=== PATIENT | female | born 1985 | race Caucasian/White ===

== ENCOUNTER 2025-07-23 09:52 | Outpatient (REF) | payer OTHER, SELFPAY ==
[2025-07-23 13:32] LABS: MANUAL DIFF FLAG NO
[2025-07-23 13:48] LABS: Hematocrit 41.0 % (37.0-47.0); Hemoglobin 13.8 g/dl (12.0-16.0); Imm Gran Abs Auto 0.01 X10*3/uL (0.00-0.03); Imm Gran Pct Auto 0.2 % (0.0-0.4); Lymphocytes Absolute Auto 1.9 X10*3/uL (1.2-4.9); Mean Corpuscular HGB Conc 33.7 g/dl (31.0-35.0); Mean Corpuscular Hemoglobin 30.5 pg (27.0-33.0); Mean Corpuscular Volume 90.5 fL (80.0-98.0); NRBC Abs Auto 0.000 X10*3/uL (0.0-0.012); NRBC Pct Auto 0.0 /100WBC (0.0-0.2); Platelet Count 258 X10*3/uL (160-400); Red Blood Count 4.53 X10*6/uL (4.20-5.50); White Blood Count 5.6 X10*3/uL (4.8-10.8)
[2025-07-23 13:59] LABS: Hemoglobin A1C 78.5575 umol/L
[2025-07-23 14:00] LABS: Alanine Aminotransferase 22 U/L (0-31); Albumin Level 4.7 g/dL (3.5-5.0); Alkaline Phosphatase 56 U/L (39-117); Anion Gap 10 (12-20); Aspartate Amino Transferase 29 U/L (5-31); Blood Urea Nitrogen 14 mg/dL (9-16); Calcium 9.4 mg/dL (8.4-10.2); Carbon Dioxide 25 mmol/L (22-29); Chloride 107 mmol/L (96-108); Cholesterol 191 mg/dL (<200); Estimated Glomerular Filt Rate > 60; HDL Cholesterol 51 mg/dL (>40); Magnesium 1.9 mg/dL (1.6-2.6); Potassium 4.1 mmol/L (3.3-5.1); Sodium 138 mmol/L (135-145); Total Protein 7.4 g/dL (6.5-8.0); Triglycerides 76 mg/dL (<150)
[2025-07-23 14:22] LABS: Folate 10.2 ng/mL (> or = 4.0); Vitamin B12 341 pg/mL (200-900)
[2025-07-24 08:30] LABS: HBS Num1 101.53 mIU/mL (0-7.99); HBsAGNum1 0.54 S/CO (0.00-0.99); HIV Num 1 0.06 S/CO (0.00-0.99); Hepatitis B Surface Antigen Negative (Negative); ~HepC Num1 0.14 S/CO (0.00-0.79); ~Hepatitis B Surface Antibody REACTIVE (Nonreactive); ~Hepatitis C Antibody Nonreactive (Nonreactive)
[2025-07-28 14:09] LABS: VITAMIN D (1,25 OH) D3 30 pg/mL; Vit D (1,25-Dihydroxy) Total 30 pg/mL (18-72); Vitamin D (1,25 OH) D2 <8 pg/mL
== END 2025-07-23 09:53 | disposition home or self-care (01) ==
LOC: HO.HKASLDS 09:52
PROVIDERS: PCP Student in an Organized Health Care Education/Training Program; Visit Provider Student in an Organized Health Care Education/Training Program
DX: B36.0 Pityriasis versicolor (principal); E03.9 Hypothyroidism, unspecified; Z72.0 Tobacco use; Z13.31 Encounter for screening for depression; Z13.39 Encounter for screening examination for other mental health and behavioral disorders; Z13.1 Encounter for screening for diabetes mellitus; F41.9 Anxiety disorder, unspecified
CPT/HCPCS: 36415; 80053; 80061; 82607; 82652; 82746; 83036; 83735; 84443; 85025; 86706; 86803; 87340; 87389; 96127

== ENCOUNTER 2025-07-23 09:52 | Outpatient (AMB) | payer OTHER, SELFPAY ==
--- NOTE | 2025-07-23 09:59 | A.OFFPC_ITS ---
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 Assistant Required: No Accompanied by: Self / Same As Patient Allergies psyllium (From Metamucil) Allergy (Severe, Verified 07/23/25 10:04) Throat Closes Medication List - Last Reconciled 07/23/25 by Rosendo Craig MD No Known Home Meds Tobacco use date assessed: 07/23/25 Dental Screening Dental Screen Date: 07/23/25 Did you have a dental visit in the last 12 months?: Yes Did you have a dental problem in the last 6 months where you did not have access to dental care?: Yes Was dental information given to patient?: Patient has dentist HPI HPI Comments History of Present Illness Details History of Present Illness The patient is a 39-year-old female presenting to establish care and for management of her thyroid. Hypothyroidism: The patient has a history of hypothyroidism, which was diagnosed as acute thyroiditis, and was previously treated with levothyroxine for two years, alternating between 25 mcg and 50 mcg daily. She independently tapered her medication to 25 mcg every other day and then stopped it completely after her thyroid panel improved. Her labs have remained within the normal range since discontinuation. An ultrasound showed mild thyroid damage from inflammation, which a prior furnace stock inspector attributed to having COVID-19 in late 2019 followed by the [employer] vaccine 30 days later. She reports current symptoms of weight gain, hair loss, low energy, and irritability, which she is unsure are related to her thyroid or age. Tinea Versicolor: The patient reports a history of tinea versicolor, first diagnosed on her arm about 15 years ago. It appeared on her back a few armstrong ago, presenting as white spots. She has tried using special soaps and antifungal treatments, but the spots persist, and she is concerned about the possibility of vitiligo. Preventative Health Fell Maintenances: The patient is due for a Pap smear, as she has not had one since the of her son, who is almost eight years old. She will be turning 40 in August and acknowledges the need for a mammogram. Surgical History: - No surgeries reported. Medications: - Past use of levothyroxine 25 mcg/50 mc g alternating daily for hypothyroidism, which she has since discontinued. Social History: - Substance Use: Smokes approximately 15 oxnx-caak-gbx cigarettes daily. - Denies alcohol or illicit drug use. 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 - Family Status: She is single and has a 7-year-old son. - Sexual History: Reports she is not sex ually active. Family History: - Mother: History of monitored breast bert mps, not cancerous. - Paternal Aunts: Two aunts with breast cancer, which was found to be non- genetic. Diagnostic Results: - Past thyroid ultrasound showed mild da mage due to inflammation. - Past thyroid antibody testing was nega tive for autoimmune disease. Past Medical History - Hypothyroidism, diagnosed as acute thy roiditis, currently not on medication. - Tinea versicolor, diagnosed 15 years a go. - History of neurologic symptoms (numbne ss and tingling) following COVID-19 vaccination. Health Maintenance - Placed referral to [facility] for Pap smea r. - Ordered baseline labs including CBC, C MP, magnesium, vitamin B12, folate, vitamin D, lipid panel, and HbA1c. - Ordered screening for Hepatitis B, Hep atitis C, and HIV. 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 1. Little interest or pleasure in doing things: not at all 2. Feeling down, depressed, or hopeless: not at all 3. Trouble falling or staying asleep, or sleeping too much: not at all 4. Feeling tired or having little energy: several days 5. Poor appetite or overeating: not at all 6. Feeling bad about yourself - or that you are a failure or have let yourself or your family down: not at all 7. Trouble concentrating on things, such as reading the newspaper or watching television: not at all 8. Moving or speaking so slowly that other people could have noticed. Or the opposite - being so fidgety or restless that you have been moving around a lot more than usual: not at all 9. Thoughts that you would be better off or of hurting yourself in some way: not at all Total score: 1 Depression Screening Interpretation: Negative Depression Screening Done: Yes 34831 - PHQ-9 Billing: Yes Source: Developed by Drs. Jim Wilkins, Tonya Ramirez, Joselito Meza and colleagues, with an educational radha from [employer]. Thrive Questionnaire Date Thrive assessed: 07/16/25 I am a: Patient What is your living situation today?: I have a steady place to live Within the past 12 months, did the food you bought not last and you didn't have the money to get more?: Never true Within the past 12 months, did you worry whether your food would run out before you got money to buy more?: Never true Do you have trouble paying for medicines?: No Do you have trouble getting transportation to medical appointments?: No Do you have trouble paying your heating and electricity bill?: No Do you have trouble taking care of your child, family member or friend?: No Do you have trouble with day-to-day activities such as bathing, preparing meals, shopping, managing finances, etc.?: No Are you currently unemployed and looking for a job?: No Are you interested in more education?: No Please select the resources that you would like help with: None Currently or been in a relationship where the following occur: No concerns reported THRIVE Score: 0 AUDIT C Alcohol Use Questionnaire (AUDIT-C) 1. How often do you have a drink containing alcohol?: Never 3. How often do you have six or more drinks on one occasion?: Never Total Score: 0 JULIO-7 AMB Questionnaire JULIO-7 Date JULIO - 7 assessed: 07/23/25 Feeling nervous, anxious, or on edge: 1 = Several days Not being able to stop or control worryin = Several days Worrying too much about different things: 1 = Several days Trouble relaxin = Several days Being so restless that it is hard to sit still: 1 = Several days Becoming easily annoyed or irritable: 1 = Several days Feeling afraid as if something awful might happen: 1 = Several days Total JULIO-7 score (0-4 normal; 5-9 mild; 10-14 moderate; 15-21 severe): 7 Source: Developed by Drs. Jim Wilkins, Tonya Ramirez, Joselito Meza and colleagues, with an educational radha from [employer]. JULIO-7 Assessment Billing JULIO-7 Assessment Tool: JULIO-7 Assessment 93802 Review of Systems Narrative Review of Systems - General: Reports weight gain, fatigue, and irritability. - Dermatologic: Reports hair loss and white spots on her back. - Psychiatric: Reports a recurrence of anxiety. - Neurological: Reports a history of numbness and tingling from the waist down that lasted 6-8 months after receiving a Pfizer COVID-19 vaccine. - Genitourinary: Reports regular menstrual periods every 28 days. - Reports normal urination and bowel movements. 10-point ROS reviewed and negative except as noted in HPI Physical exam (Primary Care) Vital Signs: Last Vital Signs Temp 98.7 F 07/23/25 10:07 Pulse 84 07/23/25 10:07 Resp 17 07/23/25 10:07 BP 121/72 07/23/25 10:07 Pulse Ox 99 07/23/25 10:07 Oxygen Delivery Method Room Air 07/23/25 10:07 BMI result Body Mass Index 26.6 Tobacco/Smoking Status: Tobacco use Status Tobacco use date assessed 07/23/25 07/23/25 10:08 Patient Tobacco Use Status Current everyday Tobacco 07/23/25 10:08 e-Cigarette/Vaping Use Never Used 07/23/25 10:08 PHQ-9: PHQ-9 Score PHQ-9: Total score 1 07/23/25 10:16 Depression Screening Interpretation: Negative Thrive Assessment: Date of Thrive Assessment Date Thrive assessed 07/16/25 07/23/25 10:02 Currently or been in a relationship where the following occur: No concerns reported Narrative Physical Exam General: Well-appearing, in no acute distress. Vital signs: Within normal limits. HEENT: Normocephalic, atraumatic. PERRLA, EOMI. Conjunctiva clear, sclera anicteric. Oropharynx clear, mucous membranes moist. TMs intact bilaterally. Neck: Supple, no lymphadenopathy, no thyromegaly, no JVD or carotid bruits. Cardiovascular: RRR, normal S1/S2, no murmurs, rubs, or gallops. Peripheral pulses 2+ and symmetric. No edema. Respiratory: Lungs clear to auscultation bilaterally, no wheezes, rales, or rhonchi. Normal effort. Abdomen: Soft, non-tender, non-distended. Normoactive bowel sounds. No hepatosplenomegaly, no masses. MSK: Full range of motion, no joint swelling or deformity. Normal gait. Skin: Warm, dry, intact. No rashes, lesions, or pallor. White spots on the back, consistent with tinea versicolor. Neuro: Alert and oriented x3. Cranial nerves II-XII intact. Strength 5/5 throughout. Sensation intact. Reflexes 2+ symmetric. Normal coordination and gait. Psych: Appropriate mood and affect. Normal judgment and insight. Reports anxiety has returned. Coding Level of Care Code New Pt Level 4 (06047) Diagnoses Hypothyroid E03.9 Tinea versicolor B36.0 Nicotine use Z72.0 Additional Codes JULIO-7 Assessment Billing - JULIO-7 Assessment Tool: JULIO-7 Assessment 69340 ([id number]) PHQ-9 - 46408 - PHQ-9 Billing: Yes ([id number]) Assessment & Plan Assessment & Plan (1) Hypothyroid: Code(s): E03.9 - Hypothyroidism, unspecified Category: Medical (2) Tinea versicolor: Code(s): B36.0 - Pityriasis versicolor Category: Medical (3) Nicotine use: Code(s): Z72.0 - Tobacco use Category: Medical Plan Consent Patient was informed and verbally consented to the use of an ambient scribe for clinic note documentation during this visit. Plan 1. History Of Hypothyroidism - Will monitor thyroid function. - Ordered TSH with reflex to T4. 2. Tinea Versicolor - Prescribed ketoconazole cream to be applied twice daily. - Placed a referral to dermatology for further evaluation. 3. Anxiety - Advised patient to discuss hormonal testing and management of anxiety with her [facility]. 4. Tobacco Use - Acknowledged patient's tobacco use. Discussion Notes I discussed with the patient that we would establish her care today. We reviewed her history of hypothyroidism and decided to check her thyroid labs given her symptoms, although her condition has been stable off medication. Regarding the white spots on her back, I explained that they appear to be tinea versicolor, and I will prescribe a trial of ketoconazole cream while she waits for a dermatology appointment. I placed a referral to an [facility] for her overdue Pap smear and advised she could also discuss her anxiety and request hormone testing with them. We will obtain a comprehensive set of bloodwork today, and I have scheduled a follow-up appointment in two weeks to review the results. Patient Instructions - Go to the lab to have your blood drawn today. - Apply the ketoconazole cream to the white spots on your back twice a day. - We have sent a referral to an [facility] for a Pap smear. - We have also sent a referral to a limb driver to evaluate the spots on your back. - Follow up in the office in two weeks to discuss your lab results. - You can discuss your anxiety and concerns about your hormones with the [facility]. Medical Decision Making The patient is a 39-year-old female presenting to establish care with concerns about her thyroid, a skin rash, and for routine health maintenance. Her history of hypothyroidism, which resolved off medication, warrants monitoring with a TSH level, especially given her non-specific symptoms of fatigue and weight gain. The skin examination of her back reveals findings highly consistent with tinea versicolor, not vitiligo. A trial of topical ketoconazole is a reasonable first step while awaiting a dermatology consultation for definitive diagnosis and management. The patient is overdue for cervical cancer screening, and a referral to an [facility] is appropriate, especially given her preference for a female provider and history of a negative experience. A comprehensive panel of labs is ordered to provide a baseline for her overall health. A follow-up in two weeks is planned to review the results and adjust the plan accordingly. Total Time Statement 30 min Total time spent caring for the patient today includes pre-visit chart review, documentation, review of laboratory and diagnostic imaging results, medication reconciliation, medically necessary evaluation, counseling on diagnoses, care coordination, ordering appropriate tests and medications, review of tests performed by other providers, reporting test results to the patient, and communication with other healthcare providers. Orders: Orders Complete Blood Count Auto Diff Today Z13.9 - Encounter for screening, unspeci fied Comprehensive Met. Panel Today Z13.9 - Encounter for screening, unspecified Hepatitis C Antibody Today Z13.9 - Encounter for screening, unspecified HIV Ab/Ag Today Z13.9 - Encounter for screening, unspecified Vitamin B12 and Folate Today Z13.9 - Encounter for screening, unspecified Magnesium Today Z13.9 - Encounter for screening, unspecified Vitamin D 1,25 dihydroxy Today Z13.9 - Encounter for screening, unspecified Hepatitis B Surface Antigen Today Z13.9 - Encounter for screening, unspecified TSH reflex Free T4 Today Z13.9 - Encounter for screening, unspecified UA CC w/rflx Micro + Cult Today Z13.9 - Encounter for screening, unspecified Lipid Panel Today Z13.9 - Encounter for screening, unspecified Hemoglobin A1c Today Z13.9 - Encounter for screening, unspecified Hepatitis B Surface Antibody Today Z13.9 - Encounter for screening, unspecified Referrals Dermatology Referral L81.9 - Disorder of pigmentation, unspecified [facility] Referral Z12.4 - Encounter for screening for malignant neoplasm of cervix Medications: New ketoconazole 2% 1 appl topical BID 60 grams 0RF B36.0 - Pityriasis versicolor
[2025-07-23 10:07] VITALS: BP 121/72; PULSE 84; RESP 17; TEMP 37.1; O2SAT 99; BMI 26.6
== END 2025-07-23 10:31 | disposition home or self-care (01) ==
LOC: HO.HMCFMS 09:53
PROVIDERS: Visit Provider Student in an Organized Health Care Education/Training Program
DX: E03.9 Hypothyroidism, unspecified (principal); B36.0 Pityriasis versicolor; Z72.0 Tobacco use